=== PATIENT | female | born 1990 | race African-American/Black ===

== ENCOUNTER 2017-08-28 06:24 | Inpatient (IN) | payer OTHER ==
[2017-08-27 10:21] VITALS: BMI 44.8
[~2017-08-28 06:24] MED LIST: BUPIVACAINE HCL/PF 0.5% (5MG/ML) 10 ML VIAL IJ ONE
[2017-08-28] MEDS ORDERED: ACETAMINOPHEN INJECTION 100 ML IVPB ONE (07:19)
[2017-08-28] MEDS ORDERED: BUPIVACAINE HCL/PF 0.5% (5MG/ML) 10 ML VIAL ONE (07:20)
[2017-08-28] MEDS ORDERED: DEXAMETHASONE SOD PHOSPHATE 4 MG/1 ML VIAL ONE (07:29)
[2017-08-28] MEDS ORDERED: SUCCINYLCHOLINE CHLORIDE 200 MG/10 ML VIAL ONE (07:29)
[2017-08-28] MEDS ORDERED: PROPOFOL 20 ML ONE ×3 (07:29→07:30)
[2017-08-28] MEDS ORDERED: ceFAZolin SODIUM 1 GM VIAL ONE (07:29)
[2017-08-28] MEDS ORDERED: LIDOCAINE HCL/PF 2% SDV 5ML VIAL ONE (07:29)
[2017-08-28] MEDS ORDERED: ROCURONIUM BROMIDE 50 MG/5 ML VIAL ONE (07:29)
[2017-08-28] MEDS ORDERED: fentaNYL CITRATE 250 MCG/5 ML VIAL ONE (07:29)
[2017-08-28] MEDS ORDERED: MIDAZOLAM HCL 2 MG/2 ML SINGLE DOSE VIAL ONE ×2 (07:29)
[2017-08-28] MEDS ORDERED: DEXAMETHASONE SOD PHOSPHATE/PF 10 MG/ML SDV ONE (07:54)
[2017-08-28] MEDS ORDERED: BUPIVACAINE HCL/PF 0.25% (2.5MG/ML) 10 ML VIAL ONE (07:54)
--- NOTE | 2017-08-28 08:08 | HP ---
Admitting History and Physical - Admission Chief Complaint: Morbid obesity History Source: Patient Limitations to Obtaining History: No Limitations - Past Medical History Cardiovascular: Yes: HTN Gastrointestinal: Yes: Other (Morbid obesity) ...LMP: 08/13/17 - Smoking History Smoking history: Never smoked Have you smoked in the past 12 months: No Aproximately how many cigarettes per day: 0 - Alcohol/Substance Use Hx Alcohol Use: No Home Medications - Allergies Allergies/Adverse Reactions: Allergies Allergy/AdvReac Type Severity Reaction Status Date / Time No Known Allergies Allergy Verified 03/09/14 13:10 - Home Medications Home Medications: Ambulatory Orders Oxycodone HCl/Acetaminophen [Percocet 10-325 mg Tablet] 1 each PO Q4H 08/27/17 Family Disease History - Family Disease History Family History: Unremarkable Review of Systems - Review of Systems Constitutional: denies: Chills, Fever HENT: reports: No Symptoms Neck: reports: No Symptoms Cardiovascular: denies: Chest Pain Respiratory: denies: Cough Gastrointestinal: denies: Abdominal Pain Neurological: denies: Change in LOC Pain Intensity: 0 Physical Examination Vital Signs: Vital Signs Temperature 98.4 F 08/28/17 07:07 Pulse Rate 90 08/28/17 07:07 Respiratory Rate 16 08/28/17 07:07 Blood Pressure 125/74 08/28/17 07:07 O2 Sat by Pulse Oximetry (%) 97 08/28/17 07:07 Constitutional: Yes: Calm Eyes: Yes: WNL HENT: Yes: WNL Neck: Yes: WNL Cardiovascular: Yes: Regular Rate and Rhythm Respiratory: Yes: Regular Gastrointestinal: Yes: Soft, Abdomen, Obese Neurological: Yes: Alert, Oriented Problem List - Problems (1) Morbid obesity due to excess calories Code(s): E66.01 - MORBID (SEVERE) OBESITY DUE TO EXCESS CALORIES Assessment/Plan Laparoscopic possible open vertical sleeve gastrectomy, possible liver biopsy, EGD
[2017-08-28] MEDS ORDERED: ALBUTEROL SO4 18 GM HFA INHALER IH ONE (08:41)
[2017-08-28] MEDS ORDERED: ceFAZolin SODIUM 1 GM VIAL IVPB ONE (08:50)
[2017-08-28] MEDS ORDERED: NEOSTIGMINE METHYLSULFATE 0.5 MG/ML - 10 ML MDV ONE (09:13)
[2017-08-28] MEDS ORDERED: GLYCOPYRROLATE 0.2 MG/1 ML VIAL ONE (09:13)
[2017-08-28] MEDS ORDERED: BUPIVACAINE HCL/PF 0.5% (5MG/ML) 10 ML VIAL IJ ONE (10:20)
[2017-08-28] MEDS ORDERED: FAMOTIDINE 20 MG/50 ML IVPB 20 MG/50 ML MG IVPB ONE (10:39)
--- NOTE | 2017-08-28 10:39 | OP ---
Operative Note - Note: Operative Date: 08/28/17 Pre-Operative Diagnosis: Morbid obesity Operation: Laparoscopic vertical sleeve gastrectomy. Laparoscopic wedge liver biopsy. EGD Post-Operative Diagnosis: Other (Morbid obesity, hepatomegaly) Surgeon: Tee Medley Manager Of Enterprise: Myriam De Leon Anesthesia: General Specimens Removed: Greater curvature of stomch. Liver biopsy Estimated Blood Loss (mls): 50 Drains & Tubes with Location: 36 Fr bougie Operative Report Dictated: Yes
[2017-08-28] MEDS ORDERED: morphine CARPU-JECT 4 MG/1 ML DISP.SYRIN IVPUSH PRN (10:40)
[2017-08-28] MEDS ORDERED: PROMETHAZINE HCL 25 MG/1 ML VIAL IVPB PRN (10:47)
[2017-08-28] MEDS ORDERED: ONDANSETRON 4 MG/2 ML VIAL IVPUSH PRN (10:47)
[2017-08-28] MEDS ORDERED: LACTATED RINGERS SOLUTION 1,000 ML IV SCH (11:00)
--- NOTE | 2017-08-28 11:25 | SPEC ---
DATE OF OPERATION: 08/28/2017 SURGEON: Tee Medley MD MAGNETIZER: ETHAN Hurst PREOPERATIVE DIAGNOSES: 1. Morbid obesity. 2. Hypertension. 3. Body mass index 44.8. POSTOPERATIVE DIAGNOSES: 1. Morbid obesity. 2. Hypertension. 3. Body mass index 44.8. 4. Hepatomegaly. PROCEDURE: 1. Laparoscopic vertical sleeve gastrectomy. 2. Laparoscopic wedge liver biopsy. 3. Esophagogastroduodenoscopy/upper endoscopy. SPECIMENS: 1. Greater curvature of the stomach. 2. Liver biopsy. ESTIMATED BLOOD LOSS: 50 mL. DRAINS: None. ANESTHESIA: GET. BOUGIE SIZE: 36-Cam[place]onian. REASON FOR PROCEDURE: This is a 26-year-old female who presents for weight loss options. After describing different options, she decided to proceed with a laparoscopic, possible open vertical sleeve gastrectomy, possible liver biopsy, and upper endoscopy. The patient was seen by the respective subspecialties and cleared for surgery. The risks and benefits of the procedure were explained. These included bleeding, infection, hernia, LA, DVT, PE, injury to surrounding structures including the liver, colon, bowel, spleen, esophagus, vessel injury, nerve injury, weight regain, gastric leak, staple line leak, sleeve leak, obstruction, vitamin deficiency, hair loss and as some of the possible complications. The patient understood and signed informed consent. DESCRIPTION OF PROCEDURE: The patient was placed supine on the operating room table. The patient underwent general endotracheal intubation. A Siddiqui catheter was inserted. The arms were brought out at 90 degrees and secured. A footboard was placed and the legs were secured laterally with padding. The abdomen was prepped and draped in the usual sterile fashion. A timeout was performed. An incision was made in the left upper quadrant and a Veress needle inserted. Pneumoperitoneum was established. Subsequently, the Veress needle was removed and a 12-mm trocar was placed. The laparoscopic camera was then inserted and inspection of the abdominal cavity was performed. An incision was then made in the supraumbilical area and a 15-mm trocar was placed under direct visualization. A 5-mm trocar was then placed in the right upper quadrant and a 5-mm trocar was placed below the left subcostal margin. A stab wound was made in the subxiphoid area and a Venessa clamp inserted and removed to dilate the tract. A Melissa liver retractor was inserted. The post was secured at the bedside by the nursing staff. The patient was placed in steep reverse Trendelenburg position and the Melissa liver retractor was used to secure the liver towards the anterior abdominal wall. The pylorus was identified and 6 cm proximal to it, the lesser sac was entered using the LigaSure device. All lateral attachments to the greater curvature of the stomach, including the short gastric vessels, were ligated using the LigaSure device toward the gastrosplenic and gastrophrenic ligaments. Once this was done in its entirety, it was confirmed that all tubes within the nasal or oropharyngeal cavity, including a temperature probe, was removed by Anesthesia. The bougie was then inserted by Anesthesia. Transection of the stomach was then begun staying adjacent to the bougie but away from the angularis. Transection of the stomach was performed near the portion of the stomach where the lesser sac was entered. Two laparoscopic Endo-NAYAN black ericka were used at this location. Laparoscopic Endo NAYAN purple staple loads were then used for the remainder of the transection until the greater curvature of the stomach was fully transected. This was done staying close to the bougie. Care was taken to stay away from the angle of His cephalad. The staple line was then inspected. Hemostasis was identified. A leak test was then performed. It was clamped distally to the staple line. Irrigation solution was placed in the left upper quadrant and air was insufflated by Anesthesia into the sleeve. No leaks were identified. No obstruction was identified. This was done through the entirety of the staple line. At this point, the irrigation solution was suctioned and again, hemostasis was noted. A wedge liver biopsy was then performed. The left lobe of the liver was identified and a portion of the edge was grasped. Using electrocautery, a wedge of the liver was excised. This was removed and sent off the field as specimen. Hemostasis at the site of the wedge liver biopsy was attained using electrocautery. The 15-mm supraumbilical trocar was then removed and the greater curvature specimen removed from the site using a sponge stick veronica. The specimen was inspected and a Veress needle inserted. The specimen insufflated adequately and no leak was identified. The staple line was noted to be intact. A Kenton-Fabiana device was then used to temporarily close the fascia with a 0 Vicryl suture at the site. The 15-mm trocar was then reinserted and the 12-mm trocar in the left upper quadrant was removed. The fascia at this site was then closed using the Kenton-Fabiana device with a 0 Vicryl suture. Again, hemostasis was noted. The Melissa liver retractor was then removed under direct visualization. Pneumoperitoneum was desufflated and the fascial sutures were secured. Hemostasis was noted at all incision sites and Marcaine was injected at all incision sites. All incision sites were closed using 4-0 Biosyn. Sterile dressings were applied. At the end of the case, an upper endoscopy was performed. The endoscope was inserted into the patient's mouth. The entirety of the esophagus, GE junction, gastric pouch, and staple line were inspected. Hemostasis was noted. No leak of obstruction was noted. The stomach was suctioned and the endoscope removed. The patient tolerated the procedure well and was transferred to the recovery room in stable condition. Michaela [id number]
[2017-08-28 11:33] LABS: CHLORIDE 106 mmol/L (98-107); POTASSIUM 4.6 mmol/L (3.5-5.1); SODIUM 137 mmol/L (136-145)
[2017-08-28 11:41] LABS: ALBUMIN 3.4 g/dl (3.4-5.0); ALK PHOS 52 U/L (45-117); ANION GAP 9 (8-16); BILIRUBIN,TOTAL 0.2 mg/dL (0.2-1.0); BLOOD UREA NITROGEN 8 mg/dL (7-18); CALCIUM 7.9 mg/dL (8.5-10.1); CO2 22 mmol/L (21-32); GLUCOSE,RANDOM 117 mg/dL (74-106); SGOT/AST 39 U/L (15-37); SGPT/ALT 43 U/L (12-78); TOT PROT 7.6 g/dl (6.4-8.2)
[2017-08-28] MEDS ORDERED: METOCLOPRAMIDE HCL INJECTION 10 MG/2 ML VIAL ONE (11:44)
[2017-08-28] MEDS: METOCLOPRAMIDE HCL INJECTION 10 MG/2 ML VIAL IVPUSH SCH ×3 (11:45→22:11)
[2017-08-28 11:48] LABS: HEMATOCRIT 36.4 % (32.4-45.2); HEMOGLOBIN 11.4 GM/dL (10.7-15.3); MCH 22.1 pg (25.7-33.7); MCHC 31.4 g/dl (32.0-36.0); MEAN CELL VOLUME 70.6 fl (80-96); MEAN PLT VOLUME 9.3 fl (7.5-11.1); PLATELET COUNT 208 K/MM3 (134-434); RBC 5.15 M/mm3 (3.60-5.2); RDW 18.6 % (11.6-15.6)
--- NOTE | 2017-08-28 11:48 | SURG ---
Surgery Medical Data Entry Clerk Note Medical Data Entry Clerk: Myriam De Leon PA-C Date of Service: 08/28/17 Diagnosis: Morbid obesity Procedure: Laparoscopic vertical sleeve gastrectomy. Laparoscopic wedge liver biopsy. EGD I was present for the entirety of the operative procedure. For further detail, please refer to operative report. Visit type - Case Type Case Type: Scheduled Admission - Emergency Emergency Visit: No - New patient This patient is new to me today: Yes Date on this admission: 08/28/17
[2017-08-28] MEDS: FAMOTIDINE 20 MG/50 ML IVPB 20 MG/50 ML MG IVPB SCH ×2 (12:09→22:12)
[2017-08-28 12:11] LABS: ANION GAP 9 (8-16); BLOOD UREA NITROGEN 8 mg/dL (7-18); CALCIUM 7.9 mg/dL (8.5-10.1); CHLORIDE 105 mmol/L (98-107); CO2 24 mmol/L (21-32); GLUCOSE,RANDOM 126 mg/dL (74-106); POTASSIUM 4.3 mmol/L (3.5-5.1); SODIUM 138 mmol/L (136-145)
[2017-08-28] MEDS: SODIUM CHLORIDE 1,000 ML IV SCH ×2 (14:31→22:12)
[2017-08-28] MEDS ORDERED: morphine SULFATE 4 MG/ML VIAL ONE (15:24)
[2017-08-28] MEDS: ONDANSETRON 4 MG/2 ML VIAL IVPUSH SCH ×2 (15:28→22:11)
[2017-08-28] MEDS: ACETAMINOPHEN 1000 MG/100 ML VIAL (NON FORMULARY) IVPB SCH ×2 (17:04→22:11)
[2017-08-28] MEDS: ENOXAPARIN NA (PORCINE) 40 MG/0.4 ML DISP.SYRIN SQ SCH (22:12)
[2017-08-28] MEDS: morphine SULFATE 4 MG/ML VIAL IVPUSH PRN (23:04)
[2017-08-29] MEDS: ONDANSETRON 4 MG/2 ML VIAL IVPUSH SCH ×5 (03:00→22:15)
[2017-08-29] MEDS: ACETAMINOPHEN 1000 MG/100 ML VIAL (NON FORMULARY) IVPB SCH (06:16)
[2017-08-29] MEDS: METOCLOPRAMIDE HCL INJECTION 10 MG/2 ML VIAL IVPUSH SCH ×4 (06:16→21:55)
[2017-08-29 07:36] LABS: HEMOGLOBIN 10.5 GM/dL (10.7-15.3); MCH 22.2 pg (25.7-33.7); MCHC 31.8 g/dl (32.0-36.0); MEAN PLT VOLUME 9.9 fl (7.5-11.1); PLATELET COUNT 208 K/MM3 (134-434); RBC 4.71 M/mm3 (3.60-5.2); RDW 18.1 % (11.6-15.6); WHITE BLOOD COUNT 5.2 K/mm3 (4.0-10.0)
--- NOTE | 2017-08-29 08:23 | PN ---
Progress Note (short form) - Note Progress Note: POD#1 PT without any nausea/emesis. OOB and ambulating to the restroom. Voiding without difficulty. Vital Signs Period Temp Pulse Resp BP Sys/Alford Pulse Ox Last 24 Hr 97.8 F-99.8 F 51-97 16-24 112-162/56-94 97-100 GEN: A&0x3, NAD CV: RRR Lungs: CTA b/l ABD: soft, non-distended, inc tenderness. Inc c/d/i with bandaids LE: SCDs/Teds in place. No calf tenderness or swelling noted b/l CBC, BMP 03/16/18 07:05 A/P: 26 yo female s/p lap vertical sleeve, POD#1 Plan for UGI series today Continue NPO/IVF OOB/ambulate DVT ppx with lovenox/SCD/early ambulation <Myriam De Leon - Last Filed: 08/29/18 08:25> - Note Progress Note: POD 1 Pain controlled AVSS Abd soft UGI: no leak/obstruction Clears Ambulate <Tee Medley - Last Filed: 08/29/17 17:11> Problem List - Problems (1) Morbid obesity due to excess calories Code(s): E66.01 - MORBID (SEVERE) OBESITY DUE TO EXCESS CALORIES <Tee Medley - Last Filed: 08/29/17 17:11>
[2017-08-29 08:25] LABS: CHLORIDE 103 mmol/L (98-107); POTASSIUM 4.4 mmol/L (3.5-5.1); SODIUM 137 mmol/L (136-145)
[2017-08-29 08:36] LABS: ALK PHOS 47 U/L (45-117); ANION GAP 7 (8-16); BILIRUBIN,TOTAL 0.3 mg/dL (0.2-1.0); BLOOD UREA NITROGEN 7 mg/dL (7-18); CALCIUM 8.3 mg/dL (8.5-10.1); CO2 27 mmol/L (21-32); CREATININE 0.9 mg/dL (0.55-1.02); GLUCOSE,RANDOM 96 mg/dL (74-106); SGOT/AST 43 U/L (15-37); SGPT/ALT 49 U/L (12-78)
[2017-08-29] MEDS: FAMOTIDINE 20 MG/50 ML IVPB 20 MG/50 ML MG IVPB SCH ×2 (09:02→21:10)
[2017-08-29] MEDS: ENOXAPARIN NA (PORCINE) 40 MG/0.4 ML DISP.SYRIN SQ SCH ×2 (09:03→21:10)
[2017-08-29] MEDS: SODIUM CHLORIDE 1,000 ML IV SCH (09:25)
--- NOTE | 2017-08-29 09:52 | PN ---
Progress Note (short form) - Note Progress Note: POD #1 - s/p sleeve gastrectomy under general anesthesia. VSS. Pt. doing well, resting comfortably in bed. No complaints. No apparent anesthetic complications noted. Continue current care.
[2017-08-29] MEDS ORDERED: SODIUM CHLORIDE 1,000 ML IV SCH (10:30)
[2017-08-29] MEDS: oxyCODONE HCL 5 MG TABLET PO PRN ×3 (10:49→22:14)
--- NOTE | 2017-08-29 15:14 | PATH ---
Surgical Pathology Report Patient Name: MILAGRO CHUNG [facility]. Rec. #: [id number] /Age/Gender: 1990 (Age: 26) / F Account: [id number] Location: 4 W TELEMETRY U Taken: 08/28/2017 Received: 08/28/2017 Reported: 08/29/2017 Physicians: Tee Medley M.D. Specimen(s) Received A: GREATER CURVATURE STOMACH B: LIVER BIOPSY Clinical History Morbid obesity Final Diagnosis A. STOMACH, GREATER CURVATURE, LAPAROSCOPIC VERTICAL SLEEVE GASTRECTOMY: PORTION OF STOMACH WITH MODERATE CHRONIC GASTRITIS. IMMUNOHISTOCHEMICAL STAIN FOR H. PYLORI IS POSITIVE (FEW). B. LIVER, BIOPSY: LIVER PARENCHYMA WITH NO SIGNIFICANT PATHOLOGIC CHANGE. NO INCREASE IN IRON AND FIBROSIS ON PERFORMED SPECIAL STAINS (IRON AND TRICHROME). Electronically Signed Michelle Jacobo M.D. Gross Description A. Received in formalin, labeled "greater curvature of stomach," is a 67 gram, 15.0 x 3.0 x 2.8 cm. portion of stomach with a stapled margin of resection. The serosa is arreaga-mobley with minimal attached fat. The mucosa is arreaga-pink with normal folds. No mucosal masses are identified. Chief Revenue Officer sections are submitted in one cassette. B. Received in formalin labeled "liver biopsy," is a 3.2 x 1.6 x 1.3 cm arreaga, irregular portion of soft tissue, consistent with a liver biopsy. Chief Revenue Officer sections are submitted in one cassette. DL/08/28/2017 saudi/08/28/2017
[2017-08-30] MEDS: ONDANSETRON 4 MG/2 ML VIAL IVPUSH SCH (02:22)
[2017-08-30] MEDS: morphine SULFATE 4 MG/ML VIAL IVPUSH PRN (04:46)
[2017-08-30] MEDS: METOCLOPRAMIDE HCL INJECTION 10 MG/2 ML VIAL IVPUSH SCH (04:51)
[2017-08-30 09:01] VITALS: BP 128/70; PULSE 80; TEMP 98
== END 2017-08-30 09:21 | disposition home or self-care (01) | DRG 403 ==
LOC: JSAMEDAYSX 06:24 → EDSTATUS 08:00 → J4W 15:00
PROVIDERS: ADMIT Surgery; ATTEND Surgery
PROC: 0DB64Z3 Excision of Stomach, Percutaneous Endoscopic Approach, Vertical (ICD-10-PCS; principal; 2017-08-28 08:00)
PROC: 0FB24ZX Excision of Left Lobe Liver, Percutaneous Endoscopic Approach, Diagnostic (ICD-10-PCS; 2017-08-28 08:00)
PROC: 0DJ08ZZ Inspection of Upper Intestinal Tract, Via Natural or Artificial Opening Endoscopic (ICD-10-PCS; 2017-08-28 08:00)
DX: E66.01 Morbid (severe) obesity due to excess calories (principal); Z68.41 Body mass index [BMI] 40.0-44.9, adult; R16.0 Hepatomegaly, not elsewhere classified; I10 Essential (primary) hypertension
CPT/HCPCS: 36415; 74241-TC-FY; 80048; 80053; 84703; 85027; 86850; 86900; 86901; 88307-TC; 94010; 94760; J0131; J7030